=== PATIENT | male | born 1955 | race Hispanic/Latino ===

== ENCOUNTER 2017-05-08 14:58 | Emergency (ER) | payer BC ==
[2017-05-08 15:33] LABS: #Basophils 0.1 thou/uL (0.0-0.2); #Eosinphils 0.2 thou/uL (0.0-0.7); #Lymphocytes 2.5 thou/uL (1.20-3.40); #Monocytes 0.7 thou/uL (0.11-0.59); #Neutrophils 5.4 thou/uL (1.40-6.50); %Basophils 1.5 % (0.0-1.0); %Eosinophils 2.5 % (0.0-10.0); %Lymphocytes 28.2 % (21.0-51.0); %Monocytes 7.7 % (0.0-10.0); %Neutrophils 60.2 % (42.0-75.0); Hemoglobin 16.2 g/dL (14.0-18.0); Mean Corpuscular HGB CONC 33.1 g/dL (32.0-36.0); Mean Corpuscular Hemoglobin 29.7 pg (27.0-31.0); Mean Corpuscular Volume 89.7 fl (80.0-94.0); Mean Platelet Volume 7.8 fL (7.4-10.4); Platelet Count 180 thou/uL (130-400); RBC Distribution Width 12.8 % (11.5-14.5); Red Blood Cell (RBC) Count 5.46 mill/uL (4.70-6.10)
[2017-05-08 15:49] LABS: ALT (SGPT) 79 U/L (8-55); AST (SGOT) 47 U/L (5-34); Albumin 4.2 g/dL (3.4-4.8); Alkaline Phosphatase 111 U/L (40-150); Anion Gap 13 mmol/L (10-20); BUN (Urea Nitrogen) 16 mg/dL (8.4-25.7); Bilirubin, Total 0.5 mg/dL (0.2-1.2); Calc. Creatinine Clearance 0 mL/min (70-130); Carbon Dioxide 24 mmol/L (23-31); Chloride 108 mmol/L (98-107); Estimated GFR-MDRD 74; Globulin 3.6 g/dL (2.4-3.5); Glucose 98 mg/dL (80-115); Potassium 3.9 mmol/L (3.5-5.1); Protein, Total 7.8 g/dL (5.8-8.1); Sodium 141 mmol/L (136-145)
[2017-05-08 15:51] LABS: Troponin I Less than 0.010 ng/mL (< 0.028)
[2017-05-08] MEDS ORDERED: Lisinopril 5 MG TAB ONE (15:56)
--- NOTE | 2017-05-08 19:40 | RAD ---
PORTABLE CHEST: 05/08/17 An AP portable film at 1522 is compared with a 09/19/07 study. The heart remains normal in size. The lungs are clear with no infiltrate or effusion. The study done at 1522 shows no adverse change compared to the older study. IMPRESSION: No acute finding. POS: HOME
== END 2017-05-08 16:39 | disposition home or self-care (01) ==
LOC: BURERS 14:58
DX: I10 Essential (primary) hypertension (principal); R79.89 Other specified abnormal findings of blood chemistry; F17.220 Nicotine dependence, chewing tobacco, uncomplicated; Z79.899 Other long term (current) drug therapy
CPT/HCPCS: 71010; 80053; 82553; 83880; 84443; 84484; 85025; 93005

== ENCOUNTER 2017-06-19 08:09 | Emergency (ER) | payer BC | END 2017-06-19 08:43 | disposition home or self-care (01) | LOC: BURERS 08:09 | DX: M54.5 Low back pain (principal); I10 Essential (primary) hypertension; F17.220 Nicotine dependence, chewing tobacco, uncomplicated; F41.9 Anxiety disorder, unspecified; Z79.899 Other long term (current) drug therapy | CPT/HCPCS: 99283 ==

== ENCOUNTER 2017-10-16 12:56 | Emergency (ER) | payer BC ==
[2017-10-16] MEDS ORDERED: Ibuprofen 800 MG TAB ONE (14:31)
--- NOTE | 2017-10-16 21:58 | RAD ---
RIGHT RIBS WITH PA CHEST 10/16/17 The ribs appeared intact with no rib fractures appreciated. The heart is normal in size given limited inspiration. There is no infiltrate, effusion, pneumothorax, or other acute change. The trachea does deviate slightly towards the right at the thoracic inlet. I cannot exclude thyroid pathology, thoug h it seems no different than the 05/08/17 film. IMPRESSION: No acute finding. POS: HOME
== END 2017-10-16 14:44 | disposition home or self-care (01) ==
LOC: BURERS 12:56
DX: R07.82 Intercostal pain (principal); I10 Essential (primary) hypertension; F41.9 Anxiety disorder, unspecified; F17.220 Nicotine dependence, chewing tobacco, uncomplicated; Z79.899 Other long term (current) drug therapy
CPT/HCPCS: 93005

== ENCOUNTER 2018-10-11 00:36 | Emergency (ER) | payer BC ==
[2018-10-11 01:17] LABS: #Basophils 0.2 thou/uL (0.0-0.2); #Eosinphils 0.3 thou/uL (0.0-0.7); #Lymphocytes 1.9 thou/uL (1.20-3.40); #Monocytes 0.8 thou/uL (0.11-0.59); #Neutrophils 6.3 thou/uL (1.40-6.50); %Basophils 2.3 % (0.0-1.0); %Eosinophils 2.7 % (0.0-10.0); %Lymphocytes 20.1 % (21.0-51.0); %Monocytes 8.4 % (0.0-10.0); %Neutrophils 66.5 % (42.0-75.0); Hemoglobin 15.9 g/dL (14.0-18.0); Mean Corpuscular HGB CONC 33.4 g/dL (32.0-36.0); Mean Corpuscular Hemoglobin 28.7 pg (27.0-31.0); Mean Corpuscular Volume 85.9 fL (78.0-98.0); Mean Platelet Volume 8.4 fL (7.4-10.4); Platelet Count 166 thou/uL (130-400); RBC Distribution Width 13.1 % (11.5-14.5); Red Blood Cell (RBC) Count 5.54 mill/uL (4.70-6.10); White Blood Cell (WBC) Count 9.5 thou/uL (4.8-10.8)
[2018-10-11 01:30] LABS: ALT (SGPT) 40 U/L (8-55); AST (SGOT) 30 U/L (5-34); Albumin 3.8 g/dL (3.4-4.8); Alkaline Phosphatase 114 U/L (40-150); Anion Gap 11 mmol/L (10-20); BUN (Urea Nitrogen) 17 mg/dL (8.4-25.7); Bilirubin, Total 0.7 mg/dL (0.2-1.2); Calc. Creatinine Clearance 0 mL/min (70-130); Calcium 9.1 mg/dL (7.8-10.44); Carbon Dioxide 24 mmol/L (23-31); Chloride 109 mmol/L (98-107); Estimated GFR-MDRD 87; Globulin 3.3 g/dL (2.4-3.5); Glucose 87 mg/dL (80-115); Lipase 45 U/L (8-78); Potassium 3.9 mmol/L (3.5-5.1); Protein, Total 7.1 g/dL (5.8-8.1); Sodium 140 mmol/L (136-145)
[2018-10-11 02:23] LABS: Clarity Clear (Clear)
[2018-10-11 02:24] LABS: Glucose, Urine (Dipstick) Negative (Negative); Leukocyte Negative (Negative); Nitrite Negative (Negative); Protein, Urine (Dipstick) Trace mg/dL (Neg-Trace); Specific Gravity, Urine 1.022 (1.002-1.036); pH, Urine 5.5 (5.0-9.0)
[2018-10-11 02:25] LABS: Bilirubin Negative (Negative); Blood, Urine Negative (Negative)
--- NOTE | 2018-10-11 09:01 | CT ---
PRELIMINARY REPORT/[facility]/EMERGENTY AFTER-HOURS PROCEDURE CT Abdomen and Pelvis Without Contrast EXAM DATE/TIME: 10/11/2018 1:12 AM CLINICAL HISTORY: 63 years old, male; Pain; Abdominal pain; Generalized; Prior surgery; Surgery date: 6+ months; Surger y type: Gallbladder; Patient HX: PT states he has an umblical hernia and is not supposed to lift heav y objects but did yesterday. He is now huring in the epigastric and umbilical area and radiating to h is back. TECHNIQUE: Axial computed tomography images of the abdomen and pelvis without contrast. All CT scans at this facility use at least one of these dose optimization techniques: automated expos ure control; mA and/or kV adjustment per patient size (includes targeted exams where dose is matched to clinical indication); or iterative reconstruction. Coronal and sagittal reformatted images were cr eated and reviewed. COMPARISON: No relevant prior studies available. FINDINGS: Lower thorax: No acute findings. ABDOMEN: Liver: Normal. No mass. Gallbladder and bile ducts: Gallbladder not identified - surgical clips present in fossa. Pancreas: Mild inhomogeneity of the fat adjacent ot lobulated portion of the pancreas tail. Spleen: Normal. No splenomegaly. Adrenals: Normal. No mass. Kidneys and ureters: Normal. No hydronephrosis. Stomach and bowel: Normal. No obstruction. No mucosal thickening. Appendix: Appendix - visualized portions appear normal. PELVIS: Bladder: Unremarkable as visualized. Reproductive: Prostate appears within normal limits. ABDOMEN and PELVIS: Intraperitoneal space: Normal. No free air. No significant fluid collection. Bones/joints: Chronic degenerative changes of the lumbar spine. Soft tissues: Rounded 1 cm fat containing umbilical hernia. Vasculature: Chronic atherosclerotic calcification of the vasculature. Lymph nodes: Normal. No enlarged lymph nodes. IMPRESSION: 1. Mild inhomogeneity of the fat adjacent to lobulated portion of the pancreas tail. Findings suspici ous for pancreatitis. --- Please correlate with patient pancreas enzyme levels to exclude pancreatiti s. 2. Rounded 1 cm fat containing umbilical hernia. Thank you for allowing us to participate in the care of your patient. Dictated and Authenticated by: Nabeel Vazquez MD FINAL REPORT CT ABDOMEN AND PELVIS WITHOUT CONTRAST: DATE: 10/11/2018. FINDINGS: Comparison is made with a prior study of 05/20/2004. The lung bases are clear. The liver and spleen appear normal. There is some haziness in the fat erick und the pancreatic tail that was not present previously. The possibility of lazaro pancreatitis was ra ised. A prior cholecystectomy is noted. The kidneys and adrenal glands showed no acute findings. T he abdominal aorta is normal in caliber. The bowel shows no distention, wall thickening, or inflammatory change around it. A few diverticula are seen in the left colon, but they are not common. The appendix appears normal. No free air or fr ee fluid was seen. CT of the pelvis showed no pelvic masses, fluid collections, or inflammatory changes. Prostate is 5. 2 cm wide. IMPRESSION: 1. Streaking in the fat around the pancreatic tail. The possibility of mild pancreatitis is raised. 2. No acute intraabdominal findings otherwise. 3. Incidental findings not listed above are a very minor fat-filled umbilical hernia and a very smal l left inguinal hernia. Neither are of current concern. Report in agreement with preliminary reading by [email or web address]. POS: HOME
== END 2018-10-11 02:35 | disposition home or self-care (01) ==
LOC: BURERS 00:36
DX: R10.816 Epigastric abdominal tenderness (principal); F41.9 Anxiety disorder, unspecified; I10 Essential (primary) hypertension; F17.220 Nicotine dependence, chewing tobacco, uncomplicated
CPT/HCPCS: 74176; 80053; 81003; 83690; 85025; 96372; J0500

== ENCOUNTER 2019-02-27 12:04 | Emergency (ER) | payer BC ==
[2019-02-27] MEDS ORDERED: Ondansetron PF 4 MG/2 ML Vial ONE (12:46)
[2019-02-27] MEDS ORDERED: Fentanyl 100 MCG/2 ML VIAL ONE (12:46)
[2019-02-27 12:48] LABS: #Basophils 0.1 thou/uL (0.0-0.2); #Eosinphils 0.3 thou/uL (0.0-0.7); #Lymphocytes 1.6 thou/uL (1.20-3.40); #Monocytes 0.7 thou/uL (0.11-0.59); %Basophils 1.5 % (0.0-1.0); %Eosinophils 2.9 % (0.0-10.0); %Lymphocytes 16.6 % (21.0-51.0); %Monocytes 7.5 % (0.0-10.0); %Neutrophils 71.5 % (42.0-75.0); Hemoglobin 16.3 g/dL (14.0-18.0); Mean Corpuscular HGB CONC 30.4 g/dL (32.0-36.0); Mean Corpuscular Hemoglobin 27.4 pg (27.0-31.0); Mean Corpuscular Volume 90.3 fL (78.0-98.0); Mean Platelet Volume 6.8 fL (7.4-10.4); Platelet Count 311 thou/uL (130-400); RBC Distribution Width 12.7 % (11.5-14.5); Red Blood Cell (RBC) Count 5.95 mill/uL (4.70-6.10); White Blood Cell (WBC) Count 9.8 thou/uL (4.8-10.8)
[2019-02-27 13:02] LABS: ALT (SGPT) 19 U/L (8-55); AST (SGOT) 28 U/L (5-34); Albumin 3.5 g/dL (3.4-4.8); Alkaline Phosphatase 100 U/L (40-150); Anion Gap 15 mmol/L (10-20); BUN (Urea Nitrogen) 14 mg/dL (8.4-25.7); Bilirubin, Total 0.6 mg/dL (0.2-1.2); Calc. Creatinine Clearance 0 mL/min (70-130); Calcium 8.9 mg/dL (7.8-10.44); Carbon Dioxide 24 mmol/L (23-31); Chloride 102 mmol/L (98-107); Estimated GFR-MDRD 62; Globulin 3.6 g/dL (2.4-3.5); Glucose 104 mg/dL (80-115); Lipase 79 U/L (8-78); Potassium 4.3 mmol/L (3.5-5.1); Protein, Total 7.1 g/dL (5.8-8.1); Sodium 137 mmol/L (136-145)
--- NOTE | 2019-02-27 14:26 | CT ---
CT ABDOMEN AND PELVIS WITH CONTRAST: DATE: 02/27/2019. FINDINGS: Comparison is made with a 10/11/2018 study. In the interval, the patient has developed ascites with fairly significant amount. This was not pres ent before. The hepatic size is perhaps minimally smaller than normal, but not dramatically so. The re might be a little unevenness to the hepatic surface as one might see in cirrhosis, but the finding is not definite enough for me to be confident in. The spleen is normal in size. No pancreatic abno rmality was seen. The adrenal glands, kidneys, and abdominal aorta showed no acute findings. There has been a prior cholecystectomy. There is no distention of bowel to suggest obstruction. Prominence of the mesentery is thought to be due to the fluid status of the patient. No free air was seen. CT of the pelvis was remarkable mainly for the large amount of ascites present. No pelvic masses wer e appreciated. The prostate is mildly enlarged. A fat-filled inguinal hernia is seen on the left. A substantial portion of the thorax was scanned on this study. No gross pulmonary masses were seen. There are no effusions. Some minor atelectasis was seen in the lung bases. IMPRESSION: Interval development of a large amount of ascites. One probably ought to at least look at a hepatic etiology first. Sampling of the fluid could be useful as well. Findings discussed with Dr. Sanford at 1415 on 02/27/2019. CODE CR POS: HOME
== END 2019-02-27 14:40 | disposition home or self-care (01) ==
LOC: BURERS 12:04
DX: R18.8 Other ascites (principal); I10 Essential (primary) hypertension; F41.9 Anxiety disorder, unspecified; F17.220 Nicotine dependence, chewing tobacco, uncomplicated; Z79.899 Other long term (current) drug therapy
CPT/HCPCS: 74177; 80053; 83605; 83690; 85025; 96374; 96375; J2405; J3010

== ENCOUNTER 2019-04-25 22:45 | Emergency (ER) | payer BC, MEDICARE ==
[~2019-04-25 22:45] MED LIST: Iopamidol 370 76% 100 ML VIAL ONE
[2019-04-25 23:29] LABS: #Basophils 0.2 thou/uL (0.0-0.2); #Eosinphils 0.2 thou/uL (0.0-0.7); #Neutrophils 10.4 thou/uL (1.40-6.50); %Basophils 1.2 % (0.0-1.0); %Eosinophils 1.4 % (0.0-10.0); %Lymphocytes 7.8 % (21.0-51.0); %Monocytes 7.9 % (0.0-10.0); %Neutrophils 81.8 % (42.0-75.0); Hemoglobin 11.8 g/dL (14.0-18.0); Mean Corpuscular HGB CONC 31.7 g/dL (32.0-36.0); Mean Corpuscular Hemoglobin 26.9 pg (27.0-31.0); Platelet Count 181 thou/uL (130-400); RBC Distribution Width 15.8 % (11.5-14.5); Red Blood Cell (RBC) Count 4.39 mill/uL (4.70-6.10); White Blood Cell (WBC) Count 12.8 thou/uL (4.8-10.8)
--- NOTE | 2019-04-25 23:31 | RAD ---
PORTABLE CHEST ONE VIEW: Date: 04-25-19 Time: 11:07 p.m. History: Shortness of breath FINDINGS/IMPRESSION: Comparison is made with exam of 03-16-19. Right sided port-a-cath remains in place. The heart size is stable. There is a left sided pleural eff usion with atelectatic changes at the left lung base. No pneumothoraces are seen. POS: [facility]
[2019-04-25 23:42] LABS: ALT (SGPT) 14 U/L (8-55); AST (SGOT) 27 U/L (5-34); Albumin 2.5 g/dL (3.4-4.8); Alkaline Phosphatase 169 U/L (40-150); BUN (Urea Nitrogen) 18 mg/dL (8.4-25.7); Bilirubin, Total 0.4 mg/dL (0.2-1.2); CK (CPK) 73 U/L (30-200); Calc. Creatinine Clearance 0 mL/min (70-130); Calcium 7.7 mg/dL (7.8-10.44); Chloride 101 mmol/L (98-107); Estimated GFR-MDRD 76; Globulin 3.6 g/dL (2.4-3.5); Glucose 76 mg/dL (80-115); Potassium 3.5 mmol/L (3.5-5.1); Protein, Total 6.1 g/dL (5.8-8.1); Sodium 139 mmol/L (136-145)
--- NOTE | 2019-04-26 08:35 | CT ---
PRELIMINARY REPORT/[facility]/EMERGENCY AFTER HOURS PROCEDURE: EXAM: CT Angiography Chest With Contrast EXAM DATE/TIME: 04/25/2019 11:58 PM CLINICAL HISTORY: 64 years old, male; Shortness of breath TECHNIQUE: Imaging protocol: Computed tomographic angiography of the chest with intravenous contrast. 3D renderi ng: MIP reconstructed images were created and reviewed. Radiation optimization: All CT scans at this facility use at least one of these dose optimization techniques: automated exposure control; mA and/o r kV adjustment per patient size (includes targeted exams where dose is matched to clinical indication); or iterative reconstruction. Contrast material: ISOVUE 370; Contrast volume: 90 ml; Contrast route: LT AC; COMPARISON: No relevant prior studies available. FINDINGS: Tubes, catheters and devices: Right internal jugular central venous catheter in the lower superior ve na cava. Pulmonary arteries: No pulmonary emboli. Aorta: Unremarkable. No aortic aneurysm. No aortic dissection. Lungs: Minimal right basilar atelectasis. Pleural space: Moderate-sized left pleural effusion, with associated posterior atelectasis. Heart: Unremarkable. No cardiomegaly. No pericardial effusion. Gallbladder and bile ducts: Gallbladder is surgically absent. Intraperitoneal space: Moderate amount of free fluid within the visualized upper abdomen, likely seco ndary to ongoing peritoneal disease. Peritoneal thickening and nodularity, with omental caking, most compatible with peritoneal carcinomatosis. Lymph nodes: Unremarkable. No enlarged lymph nodes. Bones/joints: Multilevel thoracic spine degenerative changes. Soft tissues: Unremarkable. IMPRESSION: 1. No pulmonary emboli. 2. Moderate-sized left pleural effusion, with associated posterior atelectasis. 3. Peritoneal thickening and nodularity, with omental caking, most compatible with peritoneal carcino matosis. Thank you for allowing us to participate in the care of your patient. Dictated and Authenticated by: Jose Cruz Allen MD 04/26/2019 12:30 AM Central Time ([place] & [employer]) FINAL REPORT CT ANGIO OF THE CHEST: DATE: 04/26/2019. FINDINGS: Spiral CT of the chest was performed after a bolus of IV contrast for evaluation of shortness of shira th. Axial slices were acquired, then MIP reconstructions through the pulmonary arteries were done. There is good opacification of the pulmonary arteries with no sign of pulmonary emboli. There is no evidence of aortic aneurysm or dissection. A moderate-sized left pleural effusion is present that ca uses significant atelectasis of the left lower lobe. The lungs were otherwise clear. A moderate amount of free fluid is seen in the abdomen. There is significant nodularity and caking of the omentum suggestive of diffuse metastatic disease. The spleen is not enlarged. The visible port ions of the liver showed no mass. The abdominal aorta is normal in caliber. The pancreas was unrema rkable. No masses were seen in the adrenal glands. The kidneys are seen incompletely but show no hy dronephrosis. IMPRESSION: 1. No evidence of pulmonary embolism. 2. Moderate-sized left pleural effusion with significant left lower atelectasis. 3. Ascites with evidence of diffuse mesenteric or omental nodularity suggestive of diffuse metastati c disease. Report in agreement with preliminary reading by [facility]. POS: HOME
== END 2019-04-26 00:55 | disposition home or self-care (01) ==
LOC: BURERS 22:45
DX: J90 Pleural effusion, not elsewhere classified (principal); I10 Essential (primary) hypertension; F41.9 Anxiety disorder, unspecified; F17.220 Nicotine dependence, chewing tobacco, uncomplicated; Z79.891 Long term (current) use of opiate analgesic; Z79.899 Other long term (current) drug therapy
CPT/HCPCS: 71045; 71275; 80053; 82550; 83605; 83880; 85025; 93005; Q9967

== ENCOUNTER 2019-05-22 22:29 | Emergency (ER) | payer MEDICARE, BC ==
--- NOTE | 2019-05-22 23:21 | RAD ---
PORTABLE CHEST: Date: 05-22-19 An AP portable film at 2256 is compared with a 04-25-19 study. FINDINGS: The left pleural effusion is still present but is smaller in size. No pulmonary infiltrates are seen. The heart size is normal. The Mediport catheter remains in place. IMPRESSION: No acute findings. Slight improvement in left pleural effusion. POS: HOME
[2019-05-22 23:35] LABS: #Basophils 0.1 thou/uL (0.0-0.2); #Eosinphils 0.1 thou/uL (0.0-0.7); #Monocytes 0.8 thou/uL (0.11-0.59); #Neutrophils 17.4 thou/uL (1.40-6.50); %Basophils 0.6 % (0.0-1.0); %Eosinophils 0.5 % (0.0-10.0); %Monocytes 4.2 % (0.0-10.0); %Neutrophils 89.7 % (42.0-75.0); Hemoglobin 10.1 g/dL (14.0-18.0); Mean Corpuscular HGB CONC 30.9 g/dL (32.0-36.0); Mean Corpuscular Hemoglobin 26.4 pg (27.0-31.0); Mean Corpuscular Volume 85.3 fL (78.0-98.0); Mean Platelet Volume 7.3 fL (7.4-10.4); Platelet Count 236 thou/uL (130-400); RBC Distribution Width 17.2 % (11.5-14.5); Red Blood Cell (RBC) Count 3.82 mill/uL (4.70-6.10); White Blood Cell (WBC) Count 19.4 thou/uL (4.8-10.8)
[2019-05-22 23:48] LABS: ALT (SGPT) 8 U/L (8-55); AST (SGOT) 22 U/L (5-34); Albumin 2.4 g/dL (3.4-4.8); Alkaline Phosphatase 109 U/L (40-110); Anion Gap 24 mmol/L (10-20); BUN (Urea Nitrogen) 40 mg/dL (8.4-25.7); Bilirubin, Total 0.6 mg/dL (0.2-1.2); Calc. Creatinine Clearance 0 mL/min (70-130); Calcium 7.8 mg/dL (7.8-10.44); Carbon Dioxide 17 mmol/L (23-31); Chloride 105 mmol/L (98-107); Estimated GFR-MDRD 21; Globulin 3.9 g/dL (2.4-3.5); Glucose 87 mg/dL (80-115); Potassium 3.6 mmol/L (3.5-5.1); Protein, Total 6.3 g/dL (5.8-8.1); Sodium 142 mmol/L (136-145)
[2019-05-23] MEDS ORDERED: Enoxaparin Sodium 100 MG/ML SYRINGE ONE (00:52)
[2019-05-23] MEDS ORDERED: Ondansetron PF 4 MG/2 ML Vial ONE (01:42)
== END 2019-05-23 01:55 | disposition short-term general hospital (02) ==
LOC: BURERS 22:29
DX: E86.0 Dehydration (principal); N17.9 Acute kidney failure, unspecified; I10 Essential (primary) hypertension; F41.9 Anxiety disorder, unspecified; F17.220 Nicotine dependence, chewing tobacco, uncomplicated; Z79.891 Long term (current) use of opiate analgesic; Z79.899 Other long term (current) drug therapy
CPT/HCPCS: 36415; 71045; 80053; 83880; 84484; 85025; 93005; 96374; J1650; J2405